=== PATIENT | female | born 1990 | race African-American/Black ===

== ENCOUNTER 2020-09-15 08:19 | Inpatient (IN) | payer MEDICAID ==
[~2020-09-15] VITALS: Ht 152.4 cm; Wt 72.6 kg
[2020-09-15] MEDS ORDERED: METHYLERGONOVINE MALEATE 0.2 MG/ML IM PRN (09:45)
[2020-09-15] MEDS ORDERED: CARBOPROST TROMETHAMINE 250 MCG/ML AMPUL IM PRN (09:45)
[2020-09-15] MEDS ORDERED: LACTATED RINGERS 1,000 ML IV SCH ×2 (09:45→12:15)
[2020-09-15] MEDS ORDERED: NALOXONE HCL 0.4 MG/ML 1ML VIAL IM PRN (09:45)
[2020-09-15] MEDS ORDERED: DEXT 5%/LR + PITOCIN 20UNITS/L 1,000 ML IV SCH ×2 (09:45→16:45)
[2020-09-15] MEDS ORDERED: LIDOCAINE HCL 1% 20ML VIAL (Pyxis) INJ INFIL SCH (09:45)
[2020-09-15] MEDS ORDERED: BUTORPHANOL TARTRATE 2 MG/ML VIAL IV PRN ×2 (09:45→15:45)
[2020-09-15 10:08] LABS: CLARITY URINE CLOUDY (CLEAR); COLOR URINE YELLOW (YELLOW); KETONES URINE NEGATIVE (NEGATIVE); LEUKOCYTE ESTERASE URINE 2+ (NEGATIVE); NITRITE URINE NEGATIVE (NEGATIVE); OCCULT BLOOD URINE NEGATIVE (NEGATIVE); PH URINE 6.5 (4.5-8.0); PROTEIN URINE TRACE (NEGATIVE); SPECIFIC GRAVITY URINE 1.025 (1.005-1.030)
[2020-09-15 10:10] LABS: BASOPHILS % 0.4 % (0.0-2.0); EOSINOPHILS % 0.7 % (0.0-5.0); HEMATOCRIT. 34.7 % (36.0-48.0); HEMOGLOBIN. 11.2 g/dL (12.0-16.0); LYMPHOCYTES % 16.5 % (20.0-50.0); MEAN CORPUSCULAR HEMOGLOBIN 24.8 pg (28.0-32.0); MEAN PLATELET VOLUME 9.7 fl (7.4-10.4); NEUTROPHILS % 73.4 % (40.0-76.0); PLATELET 222 x1000/uL (130-400); RED BLOOD CELL COUNT 4.51 mill/uL (4.2-5.4); RED CELL DISTRIBUTION WIDTH 20.2 % (11.6-14.6)
[2020-09-15 10:14] LABS: INR 1.1; PARTIAL THROMBOPLASTIN TIME 27.6 sec (23.4-31.0); PROTHROMBIN TIME 11.4 sec (9.6-11.0)
[2020-09-15] MEDS ORDERED: ROPIVACAINE HCL/PF EPIDURAL 200 ML EP SCH (10:30)
[2020-09-15 10:42] LABS: *AMPHETAMINES SCREEN URINE NEGATIVE (NEGATIVE); *BARBITURATES SCREEN URINE NEGATIVE (NEGATIVE); *BENZODIAZEPINES SCREEN URINE NEGATIVE (NEGATIVE); *COCAINE SCREEN URINE NEGATIVE (NEGATIVE); CANNABINOID URINE SCREEN NEGATIVE (NEGATIVE); METHADONE URINE SCREEN NEGATIVE (NEGATIVE)
[2020-09-15 10:53] LABS: OPIATES URINE SCREEN NEGATIVE (NEGATIVE)
[2020-09-15 10:55] LABS: PHENCYCLIDINE URINE SCREEN NEGATIVE (NEGATIVE)
[2020-09-15 11:28] LABS: CHLORIDE 110 mEq/L (98-107)
[2020-09-15 11:38] LABS: HEPATITIS B SURFACE ANTIGEN NEGATIVE
[2020-09-15 11:40] LABS: D-DIMER 5.66 mg/L FEU (<0.50)
[2020-09-15] MEDS ORDERED: OMEG-31 MT (12:46)
[2020-09-15] MEDS ORDERED: CHOL100046 (12:46)
[2020-09-15] MEDS ORDERED: FERR325T6 MT (12:46)
[2020-09-15] MEDS ORDERED: PREN1TAB78 MT (12:46)
[2020-09-15] MEDS ORDERED: CITRIC ACID/SODIUM CITRATE SOLN 30ML UDC PO SCH (14:45)
[2020-09-15] MEDS ORDERED: ONDANSETRON HCL 4MG/2ML INJ ONE (14:57)
[2020-09-15] MEDS ORDERED: FENTANYL CITRATE/PF 50MCG/ML 2ML VIAL ONE (14:58)
[2020-09-15] MEDS ORDERED: CEFAZOLIN SODIUM 1000MG/VIAL ONE (14:58)
[2020-09-15] MEDS ORDERED: OXYTOCIN 10 UNITS/ML 1ML ONE ×2 (14:58→15:48)
[2020-09-15] MEDS ORDERED: EPHEDRINE SULFATE 50MG/ML VIAL ONE (14:59)
[2020-09-15] MEDS ORDERED: GLYCOPYRROLATE 0.2 MG/ML 2ML VIAL ONE (15:00)
[2020-09-15] MEDS ORDERED: KETOROLAC 60MG/2ML VIAL IM ONE (15:36)
[2020-09-15] MEDS ORDERED: DIPHENHYDRAMINE 50MG/ML VIAL ONE (15:36)
[2020-09-15] MEDS ORDERED: KETOROLAC 30MG/ML VIAL IV SCH (15:45)
[2020-09-15] MEDS ORDERED: NALOXONE HCL 0.4 MG/ML 1ML VIAL IV PRN (15:45)
[2020-09-15] MEDS ORDERED: DIPHENHYDRAMINE 50MG/ML VIAL IV PRN (15:45)
[2020-09-15] MEDS ORDERED: DIPHENHYDRAMINE 25MG CAPSULE PO PRN (16:45)
[2020-09-15] MEDS ORDERED: RHO(D) IMMUNE GLOBULIN 300 MCG/SYR IM PRN (16:45)
[2020-09-15] MEDS ORDERED: BISACODYL 10MG SUPP PR PRN (16:45)
[2020-09-15] MEDS ORDERED: HEMORRHOIDAL SUPP PR PRN (16:45)
[2020-09-15] MEDS ORDERED: IBUPROFEN 400MG TABLET PO PRN (16:45)
[2020-09-15] MEDS ORDERED: ONDANSETRON HCL 4MG/2ML INJ IV PRN (16:45)
[2020-09-15] MEDS ORDERED: LANOLIN OINT 7GM TUBE TOP PRN (16:45)
[2020-09-15] MEDS ORDERED: HYDROCODONE/ACETAMINOPHEN 5/325MG TABLET PO PRN (16:45)
[2020-09-15 18:30] VITALS: BP 128/74
[2020-09-15 18:59] VITALS: BP 127/78
[2020-09-15 20:00] VITALS: BP 134/86
[2020-09-15] MEDS: SIMETHICONE 80MG TABLET CHEW PO SCH (21:00)
[2020-09-15] MEDS: MAGNESIUM/ALUMINUM HYDROXIDE/SIMETHICONE 30ML UDC PO SCH (21:00)
[2020-09-15] MEDS: DOCUSATE SODIUM 100MG CAPSULE PO SCH (21:00)
[2020-09-16] VITALS: BP 128/81
[2020-09-16 03:38] VITALS: BP 130/82
[2020-09-16 06:25] LABS: BASOPHILS % 0.2 % (0.0-2.0); EOSINOPHILS % 0.1 % (0.0-5.0); HEMATOCRIT. 24.9 % (36.0-48.0); LYMPHOCYTES % 9.5 % (20.0-50.0); MEAN CORPUSCULAR HEMOGLOBIN 24.5 pg (28.0-32.0); MEAN CORPUSCULAR VOLUME 76.5 fL (81.0-99.0); MEAN PLATELET VOLUME 9.8 fl (7.4-10.4); NEUTROPHILS % 84.2 % (40.0-76.0); PLATELET 179 x1000/uL (130-400); RED BLOOD CELL COUNT 3.26 mill/uL (4.2-5.4); RED CELL DISTRIBUTION WIDTH 20.5 % (11.6-14.6)
[2020-09-16] MEDS: FERROUS SULFATE 325MG TABLET PO SCH (08:09)
[2020-09-16] MEDS: IBUPROFEN 800MG TABLET PO PRN ×2 (08:10→15:30)
[2020-09-16] MEDS: PRENATAL VIT/FE FUMARATE/FA TABLET PO SCH (08:11)
[2020-09-16] MEDS: SIMETHICONE 80MG TABLET CHEW PO SCH ×2 (08:11→21:09)
[2020-09-16 08:15] VITALS: BP 123/75
[2020-09-16 17:33] VITALS: BP 127/77
[2020-09-16 20:00] VITALS: BP 115/85
[2020-09-16] MEDS: MAGNESIUM/ALUMINUM HYDROXIDE/SIMETHICONE 30ML UDC PO SCH (21:09)
[2020-09-16] MEDS: DOCUSATE SODIUM 100MG CAPSULE PO SCH (21:09)
[2020-09-17] MEDS: IBUPROFEN 800MG TABLET PO PRN ×2 (01:12→09:13)
[2020-09-17 04:10] VITALS: BP 125/78
[2020-09-17] MEDS ORDERED: IBUP-2030 PO (06:51)
[2020-09-17 08:00] VITALS: BP 124/78
[2020-09-17] MEDS: SIMETHICONE 80MG TABLET CHEW PO SCH ×2 (09:05→13:00)
[2020-09-17] MEDS: FERROUS SULFATE 325MG TABLET PO SCH ×2 (09:05→12:30)
[2020-09-17] MEDS: MAGNESIUM/ALUMINUM HYDROXIDE/SIMETHICONE 30ML UDC PO SCH ×2 (09:05→12:30)
[2020-09-17] MEDS: PRENATAL VIT/FE FUMARATE/FA TABLET PO SCH (09:05)
== END 2020-09-17 13:30 | disposition home or self-care (01) | DRG 540 ==
LOC: OBSVTOIN 08:19 → 8 EST LDRP 08:19 → 8EST 18:05
PROVIDERS: ADMIT Obstetrics & Gynecology; ATTEND Obstetrics & Gynecology
PROC: 10D00Z1 Extraction of Products of Conception, Low, Open Approach (ICD-10-PCS; principal; 2020-09-15)
DX: O33.9 Maternal care for disproportion, unspecified (principal); O99.02 Anemia complicating childbirth; D64.9 Anemia, unspecified; Z37.0 Single live birth; Z3A.39 39 weeks gestation of pregnancy; Z79.899 Other long term (current) drug therapy
CPT/HCPCS: 36415; 76805; 76818; 80053; 80305; 81003; 84550; 85025; 85379; 85384; 86592; 86703; 86762; 86850; 86900; 86920; 87340; 88307; J0690; J1200; J1885; J2405; J2590; J3010; J3490; J7120; A4315